=== PATIENT | female | born 1990 | race African-American/Black ===

== ENCOUNTER 2023-06-18 15:32 | Inpatient (IN) | payer OTHER, SELFPAY ==
[2023-06-18] VITALS (9 sets, daily range): BP systolic 113–136; BP diastolic 56–74; PULSE 65–85; TEMP 36.2
[2023-06-18 16:29] LABS: Hematocrit 34.1 % (36.0-48.0); Mean Corpuscular HGB Conc 32.3 g/dL (29.9-35.2); Mean Corpuscular Hemoglobin 30.6 pg (26.7-34.0); Mean Corpuscular Volume 94.7 fL (81.0-99.0); Mean Platelet Volume 9.7 fL (9.5-13.5); Platelet Count 245 10^3/uL (150-450); Red Cell Distribution Width 13.7 % (11.0-15.0)
[2023-06-18 16:40] LABS: Amphetamine Screen Urine NEGATIVE (NEGATIVE); Barbiturates Screen Urine NEGATIVE (NEGATIVE); Benzodiazepines Screen Urine NEGATIVE (NEGATIVE); Buprenorphine Screen Urine NEGATIVE (NEGATIVE); Cannabinoid Screen Urine NEGATIVE (NEGATIVE); Cocaine Screen Urine NEGATIVE (NEGATIVE); Methadone Screen Urine NEGATIVE (NEGATIVE); Methamphetamines Screen Urine NEGATIVE (NEGATIVE); Opiate Screen Urine NEGATIVE (NEGATIVE); Oxycodone Screen Urine NEGATIVE (NEGATIVE); Phencyclidine Screen Urine NEGATIVE (NEGATIVE); Tricyclic Antidepressant Urine NEGATIVE (NEGATIVE)
--- NOTE | 2023-06-18 17:16 | PM.OBHP ---
OB - H&P: HPI History of Present Illness Chief complaint: LABOR : 3 Para: 2 Gestational age based on last menstrual period: 39 weeks History of Present Dating criteria: LMP confirmed by 1st trimester US care: good care Ultrasounds: normal 1st trimester US and normal mid trimester US Medical complications OB: none Labs Blood type: A (+) positive Rubella: immune RPR/VDLR: nonreactive GBS status: negative HBsAG: negative Meds Home Medications and Allergies Allergies Allergy/AdvReac Type Severity Reaction Status Date / Time No Known Drug Allergies Allergy Verified 06/18/23 17:21 Exam Constitutional Vital Signs, click to edit/add: Last Vital Signs Pulse 82 06/18/23 17:04 BP 128/67 06/18/23 17:04 Documenting provider has reviewed patient's vital signs: yes Common normals: no apparent distress and oriented x3 General appearance: cooperative, comfortable and well kempt Orientation/consciousness: Yes awake, Yes oriented to person, Yes oriented to place and Yes oriented to time HENMT Common normals: normocephalic Eye Common normals: EOMs intact bilaterally General eye: normal appearance of both eyes Lymph Lymphatic: no lymphadenopathy noted Chest Common normals: inspection of chest normal Respiratory Common normals: normal respiratory effort and clear to auscultation bilaterally Auscultation: clear to auscultation bilaterally Cardio Common normals: regular rate and regular rhythm Rate: regular rate Rhythm: regular rhythm GI Common normals: soft to palpation Inspection: normal to inspection Palpation: soft Common normals: no CVA tenderness Back & Pelvis Thoracic spine/upper back: normal to inspection Extremity Common normals: normal to inspection, full ROM and normal capillary refill Neuro Common normals: oriented x3 Sensorium/orientation: awake, alert, oriented to person, oriented to place and oriented to time Psych Common normals: mental status grossly normal, thought process normal, cooperative, affect normal and speech normal Attitude: calm Speech: normal speech Thought content: normal thought content Results Labs Labs: Short CBC 06/18/23 Range/Units 16:15 WBC 10.0 (4.0-11.0) 10^3/uL Hgb 11.0 L (12.0-16.0) g/dL Hct 34.1 L (36.0-48.0) % Plt Count 245 (150-450) 10^3/uL
[2023-06-18] MEDS: KETOROLAC TROMETHAMINE 30 MG/ML VIAL IVP (17:39)
[2023-06-18] MEDS: OXYTOCIN/0.9 % SODIUM CHLORIDE 20 UNITS/1,000 ML PLAST..BAG 125 UNIT IV (17:40)
--- NOTE | 2023-06-18 17:48 | PM.OBPRCVD ---
Procedure Procedure: Intrapartal events: None Induction method: none Delivery augmentation: rupture of membranes Delivery monitor: external FHT and external uterine Route of delivery: Episiotomy Description: none Laceration description: none Estimated blood loss (mL): 150 Anesthesia type: None Disposition: no change Infant Delivery date: 06/18/23 Gender: male presentation: vertex Placental delivery description: Spontaneous cord description: 3 Vessels heart rate - 1 minute: 100 bpm or Greater respiratory effort - 1 minute: Spontaneous/Strong Cry muscle tone - 1 minute: Active Movement reflex response - 1 minute: Minimal Response color - 1 minute: Bluish Hands or Feet total score - 1 minute: 8 heart rate - 5 minute: 100 bpm or Greater respiratory effort - 5 minute: Spontaneous/Strong Cry muscle tone - 5 minute: Active Movement reflex response - 5 minute: Prompt Response color - 5 minute: Bluish Hands or Feet total score - 5 minute: 9
--- NOTE | 2023-06-18 22:22 | PM.OBDS ---
DS: Providers Provider Date of admission: 06/18/23 15:32 Primary care physician: Non-Staff PhysicianMD Admitting clinician: KRIS TOMLINSON Attending physician on admission: KRIS TOMLINSON Attending physician on discharge: KRIS TOMLINSON Discharging clinician: KRIS TOMLINSON Anticipated date of discharge: 06/18/23 OB - DS: Summary Hospital Course Hospital Course: order placed in error Gender: male Time Spent with Patient Time attestation: Total time spent providing and/or coordinating discharge services: Time spent: less than 30 minutes Exam Constitutional Vital Signs, click to edit/add: Last Vital Signs Temp 97.2 F L 06/18/23 18:04 Pulse 70 06/18/23 18:49 BP 113/56 06/18/23 18:49 Documenting provider has reviewed patient's vital signs: yes Common normals: no apparent distress, oriented x3 and alert Orientation/consciousness: Yes awake, Yes oriented to person, Yes oriented to place and Yes oriented to time HENMT Common normals: normocephalic Head and scalp: normocephalic Eye Common normals: EOMs intact bilaterally General eye: normal appearance of both eyes Lymph Lymphatic: no lymphadenopathy noted Chest Common normals: inspection of chest normal Respiratory Common normals: normal respiratory effort and clear to auscultation bilaterally Auscultation: clear to auscultation bilaterally Cardio Common normals: regular rate and regular rhythm Rate: regular rate Rhythm: regular rhythm GI Common normals: soft to palpation Inspection: normal to inspection Palpation: soft Common normals: no CVA tenderness Bladder/kidney exam: no CVA tenderness Back & Pelvis Common normals: no CVA tenderness Thoracic spine/upper back: normal to inspection Extremity Common normals: normal to inspection, full ROM and normal capillary refill Neuro Common normals: oriented x3 Sensorium/orientation: awake, alert, oriented to person, oriented to place and oriented to time Psych Common normals: mental status grossly normal, thought process normal, cooperative, affect normal and speech normal Appearance: well kempt Speech: normal speech Thought process: normal thought process Thought content: normal thought content DS: Data Data Completed and Pending Labs on day of discharge: Labs from last 24 hours 06/18/23 16:15 WBC 10.0 RBC 3.60 L Hgb 11.0 L Hct 34.1 L MCV 94.7 MCH 30.6 MCHC 32.3 RDW 13.7 Plt Count 245 MPV 9.7 Urine Opiates Screen Negative Ur Buprenorphine Scrn Negative Ur Oxycodone Screen Negative Urine Methadone Screen Negative Ur Propoxyphene Screen Negative Ur Barbiturates Screen Negative U Tricyclic Antidepress Negative Ur Phencyclidine Scrn Negative Ur Amphetamines Screen Negative U Methamphetamines Scrn Negative U Benzodiazepines Scrn Negative Urine Cocaine Screen Negative U Cannabinoids Screen Negative Blood Type A Positive Antibody Screen Negative Discharge Plan Discharge Discharge Medications: No Action ferrous sulfate [FeroSul] 325 mg (65 mg iron) tablet WesTab Plus 27 mg iron- 1 mg tablet
[2023-06-19 00:10] VITALS: BP 100/52; PULSE 102
[2023-06-19 00:15] VITALS: PULSE 102; RESP 16; TEMP 37.2
[2023-06-19] MEDS: IBUPROFEN 400 MG TABLET 800 MG PO ×3 (00:48→17:14)
--- NOTE | 2023-06-19 01:52 | PC.NURSE ---
0030-Report given to July Coello RN. Care relinquished.
--- NOTE | 2023-06-19 07:20 | W.PC.ACHO ---
Registration Status: ADM IN Primary Language: Preferred Language: Active Medications Generic Name Dose Route Start Last Admin Trade Name Blade PRN Reason Stop Dose Admin Acetaminophen 650 mg 06/18/23 17:57 Acetaminophen 325 Mg Tablet PO Q6H PRN Mild Pain Al Hydroxide/Mg Hydroxide 2,400 mg 06/18/23 17:57 Magnesium Hydroxide 2,400 Mg/10 Ml Oral.Susp PO Q6H PRN Dyspepsia Benzocaine/Menthol 1 applic 06/18/23 17:57 Benzocaine/Menthol 85 Gram [place] Bottle TOPICAL Q2H PRN Pain Carboprost Tromethamine 250 mcg 06/18/23 15:54 Carboprost Tromethamine 250 Mcg/Ml 1 Ml Vial IM 06/19/23 18:00 Q15M PRN Bleeding Diphtheria/Pertussis/Tetanus Vacc 0.5 ml 06/20/23 09:00 Adacel Diph,Pertuss(Acell),Tet Vac/Pf 0.5 Ml Adult Syringe IM 06/20/23 09:01 .ONCE ONE Docusate Sodium 100 mg 06/19/23 09:00 Docusate Sodium 100 Mg Capsule PO BID KACIE Sodium Chloride 1,000 mls @ 125 mls/hr 06/18/23 16:00 Sodium Chloride 0.9% 1,000 Ml IV .Q8H KACIE Ibuprofen 800 mg 06/19/23 00:30 06/19/23 00:48 Ibuprofen 400 Mg Tablet PO 800 mg Q8H KACIE Administration Measles/Mumps/Rubella Vaccine Live 0.5 ml 06/20/23 09:00 Measles,Mumps,Rubella Vacc/Pf 0.5 Ml Vial SQ 06/20/23 09:01 .ONCE ONE Methylergonovine Maleate 0.2 mg 06/18/23 15:54 Methylergonovine Maleate 0.2 Mg/Ml Ampule IM 06/19/23 18:00 ONCE PRN Uterine Contractility/Contract Methylergonovine Maleate 0.2 mg 06/18/23 15:54 Methylergonovine Maleate 0.2 Mg Tablet PO 06/19/23 18:00 Q4H PRN Uterine Contractility/Contract Misoprostol 600 mcg 06/18/23 15:54 Misoprostol 100 Mcg Tablet PO 06/19/23 18:00 ONCE PRN Uterine Bleeding Misoprostol 800 mcg 06/18/23 15:54 Misoprostol 100 Mcg Tablet SL 06/19/23 18:00 ONCE PRN Uterine Bleeding Misoprostol 1,000 mcg 06/18/23 15:54 Misoprostol 100 Mcg Tablet MS 06/19/23 18:00 ONCE PRN Uterine Bleeding Senna 17.2 mg 06/18/23 20:00 Sennosides 8.6 Mg Tablet PO QHS PRN Constipation Simethicone 80 mg 06/18/23 17:57 Simethicone 80 Mg Tab.Chew PO QID PRN Abdominal Distention Temazepam 15 mg 06/18/23 17:57 Temazepam 15 Mg Capsule PO QHS PRN Sleep Witch Lillie/Glycerin 1 pad 06/18/23 17:57 Glycerin/Witch Lillie Pads TOPICAL Q2H PRN Pain Diet Category Date Time Status Regular Consistency Diet Diet 06/18/23 Dinner Active IV Insertion/Site Date of IV Line Insertion [20g 06/18/23 right Antecubital] IV Insertion Time [20g right 16:15 Antecubital] Respiratory Oxygen Delivery Method Room Air Renal Bladder Pattern Continent
[2023-06-19] MEDS: DOCUSATE SODIUM 100 MG CAPSULE PO ×2 (08:32→22:49)
[2023-06-19 08:35] VITALS: BP 116/67; PULSE 94; TEMP 36.2
--- NOTE | 2023-06-19 11:37 | P.OBPN_ITS ---
OB - PN: Subj Subjective Patient comments: no complaints, tolerating diet and flatus present status: doing well [place] feeding status: exclusively Exam Narrative Exam Narrative: S/P VAGINAL DELIVERY WITH NO REPAIR DOING WELL. VOICING NO COMPLAINTS. Constitutional Vital Signs, click to edit/add: Last Vital Signs Temp 97.1 F L 06/19/23 08:35 Pulse 94 H 06/19/23 08:35 Resp 16 06/19/23 00:15 BP 116/67 06/19/23 08:35 O2 Del Method Room Air 06/19/23 00:15 Common normals: no apparent distress, average body habitus, oriented x3, no limitations, healthy appearing, alert and well nourished HENMT Common normals: normocephalic and head/scalp atraumatic Eye Pupil: PERRL and accommodation reflex normal Neck & C-Spine Common normals: full ROM Respiratory Common normals: normal respiratory effort Cardio Common normals: regular rate and regular rhythm GI Common normals: Normal to inspection, nondistended, normoactive bowel sounds present Common normals: no CVA tenderness Extremity Common normals: normal to inspection, full ROM and no calf tenderness Neuro Common normals: oriented x3, CN's II-XII intact bilaterally, moves all extremities, no focal motor deficits and no sensory deficits noted Psych Common normals: mental status grossly normal, thought process normal, cooperative and affect normal Results Labs Labs: Short CBC 06/18/23 Range/Units 16:15 WBC 10.0 (4.0-11.0) 10^3/uL Hgb 11.0 L (12.0-16.0) g/dL Hct 34.1 L (36.0-48.0) % Plt Count 245 (150-450) 10^3/uL OB - PN: A/P Assessment and Plan (1) Normal vaginal delivery: Assessment and Plan: NORMAL EXAM. VOICING NO COMPLAINTS. BONDING WELL WITH BABY. . Plan ROUTINE CARE Plan - Vaginal Delivery day: 1 Plan: routine care Time Spent with Patient Time: Total time spent is greater than 50% in coordination of care (as documented) at patient's floor/unit and/or counseling patient: Total time spent with greater than 50% in coordination of care (as documented) at patient's floor/unit and/or counseling patient: less than 15 minutes
[2023-06-19 17:16] VITALS: BP 114/58; PULSE 71; TEMP 36.4
--- NOTE | 2023-06-19 19:13 | W.PC.ACHO ---
Registration Status: ADM IN Primary Language: Preferred Language: Active Medications Generic Name Dose Route Start Last Admin Trade Name Blade PRN Reason Stop Dose Admin Acetaminophen 650 mg 06/18/23 17:57 Acetaminophen 325 Mg Tablet PO Q6H PRN Mild Pain Al Hydroxide/Mg Hydroxide 2,400 mg 06/18/23 17:57 Magnesium Hydroxide 2,400 Mg/10 Ml Oral.Susp PO Q6H PRN Dyspepsia Benzocaine/Menthol 1 applic 06/18/23 17:57 Benzocaine/Menthol 85 Gram [place] Bottle TOPICAL Q2H PRN Pain Diphtheria/Pertussis/Tetanus Vacc 0.5 ml 06/20/23 09:00 Adacel Diph,Pertuss(Acell),Tet Vac/Pf 0.5 Ml Adult Syringe IM 06/20/23 09:01 .ONCE ONE Docusate Sodium 100 mg 06/19/23 09:00 06/19/23 08:32 Docusate Sodium 100 Mg Capsule PO 100 mg BID KACIE Administration Sodium Chloride 1,000 mls @ 125 mls/hr 06/18/23 16:00 Sodium Chloride 0.9% 1,000 Ml IV .Q8H KACIE Ibuprofen 800 mg 06/19/23 00:30 06/19/23 17:14 Ibuprofen 400 Mg Tablet PO 800 mg Q8H KACIE Administration Measles/Mumps/Rubella Vaccine Live 0.5 ml 06/20/23 09:00 Measles,Mumps,Rubella Vacc/Pf 0.5 Ml Vial SQ 06/20/23 09:01 .ONCE ONE Senna 17.2 mg 06/18/23 20:00 Sennosides 8.6 Mg Tablet PO QHS PRN Constipation Simethicone 80 mg 06/18/23 17:57 Simethicone 80 Mg Tab.Chew PO QID PRN Abdominal Distention Temazepam 15 mg 06/18/23 17:57 Temazepam 15 Mg Capsule PO QHS PRN Sleep Witch Lillie/Glycerin 1 pad 06/18/23 17:57 Glycerin/Witch Lillie Pads TOPICAL Q2H PRN Pain Respiratory Oxygen Delivery Method Room Air Oxygen Delivery Method Room Air Renal Bladder Pattern Continent
[2023-06-20] MEDS: IBUPROFEN 400 MG TABLET 800 MG PO ×2 (01:09→09:18)
[2023-06-20 01:11] VITALS: BP 104/55; PULSE 74
[2023-06-20 01:13] VITALS: RESP 16
--- NOTE | 2023-06-20 07:41 | W.PC.ACHO ---
Registration Status: ADM IN Primary Language: Preferred Language: Active Medications Generic Name Dose Route Start Last Admin Trade Name Blade PRN Reason Stop Dose Admin Acetaminophen 650 mg 06/18/23 17:57 Acetaminophen 325 Mg Tablet PO Q6H PRN Mild Pain Al Hydroxide/Mg Hydroxide 2,400 mg 06/18/23 17:57 Magnesium Hydroxide 2,400 Mg/10 Ml Oral.Susp PO Q6H PRN Dyspepsia Benzocaine/Menthol 1 applic 06/18/23 17:57 Benzocaine/Menthol 85 Gram [place] Bottle TOPICAL Q2H PRN Pain Diphtheria/Pertussis/Tetanus Vacc 0.5 ml 06/20/23 09:00 Adacel Diph,Pertuss(Acell),Tet Vac/Pf 0.5 Ml Adult Syringe IM 06/20/23 09:01 .ONCE ONE Docusate Sodium 100 mg 06/19/23 09:00 06/19/23 22:49 Docusate Sodium 100 Mg Capsule PO 100 mg BID KACIE Administration Sodium Chloride 1,000 mls @ 125 mls/hr 06/18/23 16:00 Sodium Chloride 0.9% 1,000 Ml IV .Q8H KACIE Ibuprofen 800 mg 06/19/23 00:30 06/20/23 01:09 Ibuprofen 400 Mg Tablet PO 800 mg Q8H KACIE Administration Measles/Mumps/Rubella Vaccine Live 0.5 ml 06/20/23 09:00 Measles,Mumps,Rubella Vacc/Pf 0.5 Ml Vial SQ 06/20/23 09:01 .ONCE ONE Senna 17.2 mg 06/18/23 20:00 Sennosides 8.6 Mg Tablet PO QHS PRN Constipation Simethicone 80 mg 06/18/23 17:57 Simethicone 80 Mg Tab.Chew PO QID PRN Abdominal Distention Temazepam 15 mg 06/18/23 17:57 Temazepam 15 Mg Capsule PO QHS PRN Sleep Witch Lillie/Glycerin 1 pad 06/18/23 17:57 Glycerin/Witch Lillie Pads TOPICAL Q2H PRN Pain Respiratory Oxygen Delivery Method Room Air Cardiology Heart Sounds Strong,Regular Bowels Bowel Pattern No Bowel Movement Renal Bladder Pattern Continent
[2023-06-20 09:15] VITALS: RESP 16; TEMP 37.2
[2023-06-20 09:22] VITALS: BP 112/70; PULSE 96
[2023-06-20] MEDS: ADACEL DIPH,PERTUSS(ACELL),TET VAC/PF 0.5 ML ADULT SYRINGE IM (12:14)
--- NOTE | 2023-06-20 12:51 | PM.OBDS ---
DS: Providers Provider Date of admission: 06/18/23 15:32 Primary care physician: Non-Staff Physician, Admitting clinician: KRIS TOMLINSON Attending physician on admission: Natanael Servin Discharging clinician: Richa Seaman Anticipated date of discharge: 06/20/23 DS: Diagnosis Discharge Diagnosis (1) Normal vaginal delivery: Assessment and plan: NO PERINEAL REPAIR, NORMAL [place], NO COMPLAINTS Plan DISCHARGE OB - DS: Summary Hospital Course Hospital Course: UNCOMPLICATED Time spent discussing smoking cessation with patient: 3 to 10 minutes Peripartum Data - Vaginal Delivery Laceration description: none Complications complications: none Infant Delivery method: spontaneous vaginal delivery Gender: male Discharge plan: home Status at Discharge Functional status at discharge: independent ambulation Overall status at discharge: patient is back to baseline Time Spent with Patient Time attestation: Total time spent providing and/or coordinating discharge services: Time spent: less than 30 minutes Exam Constitutional Vital Signs, click to edit/add: Last Vital Signs Temp 98.9 F 06/20/23 09:15 Pulse 96 H 06/20/23 09:22 Resp 16 06/20/23 09:15 BP 112/70 06/20/23 09:22 O2 Del Method Room Air 06/19/23 17:00 Documenting provider has reviewed patient's vital signs: yes Common normals: no apparent distress, oriented x3, no limitations, healthy appearing, alert and well nourished HENUT Common normals: normocephalic and head/scalp atraumatic Eye Pupil: PERRL and accommodation reflex normal Neck & C-Spine Common normals: full ROM Respiratory Common normals: normal respiratory effort Cardio Common normals: regular rate and regular rhythm GI Common normals: Normal to inspection, nondistended, normoactive bowel sounds present Common normals: no CVA tenderness Extremity Common normals: full ROM and no calf tenderness Neuro Common normals: CN's II-XII intact bilaterally, moves all extremities, no focal motor deficits and no sensory deficits noted Psych Common normals: mental status grossly normal, thought process normal, cooperative and affect normal Discharge Plan Discharge Disposition: Home, Self-Care Condition: Good Assessment: NORMAL EXAM, VSS Health Concerns: NONE Plan of Treatment: DISCHARGE Discharge Medications: Discontinued ferrous sulfate [FeroSul] 325 mg (65 mg iron) tablet WesTab Plus 27 mg iron- 1 mg tablet Activity: resume usual activities as tolerated Activity Detail: WALKING ONLY EXERCISE FOR SIX WEEKS Diet: regular diet Patient Instructions: Vaginal Delivery (DC) Activity Restrictions/Additional Instructions: NO SEX FOR SIX WEEKS, SPORTS BRA 27/04 IF DECIDES TO STOP BREAST FEEDING, SHOWER ALLOWED, STAIRS ALLOWED, WALKING ONLY EXERCISE FOR SIX WEEKS Forms: Portal Instructions Follow Up Appointments: MAKE APPOINTMENT FOR SIX WEEKS WITH OB PROVIDER Discharge location: HOME
== END 2023-06-20 14:30 | disposition home or self-care (01) | DRG 560 ==
PROVIDERS: Admitting Provider Midwife; Visit Provider Obstetrics & Gynecology
DX: O80 Encounter for full-term uncomplicated delivery (principal); Z3A.39 39 weeks gestation of pregnancy; Z37.0 Single live birth
CPT/HCPCS: 36415; 59050; 59410; 80307; 85027; 86850; 86900; 86901; 90471; 90715; 96374; 96375